=== PATIENT | female | born 1945 | race Caucasian/White ===

== ENCOUNTER 2017-06-11 07:24 | Day surgery (SDC) | payer BC ==
[~2017-06-11 07:24] MED LIST: Metoclopramide 10 MG/2 ML SDV IV PRN; Sodium Chloride 0.9% 1,000 ML IV SCH; Sodium Chloride 0.9% 10 ML Syringe FLUSH PRN
[2017-06-11] MEDS ORDERED: Atropine 0.4 MG/ML SDV ONE (09:15)
[2017-06-11] MEDS ORDERED: Propofol 200 MG/20 ML SDV ONE (09:15)
[2017-06-11 12:58] VITALS: BP 134/71
--- NOTE | 2017-06-11 15:16 | OR ---
DATE OF OPERATION: 06/11/2017 PREOPERATIVE DIAGNOSIS: Screening colonoscopy. POSTOPERATIVE DIAGNOSIS: Normal colonoscopy. OPERATION: Screening colonoscopy. COMPLICATIONS: None. DRAINS: None. SPECIMENS: None. ESTIMATED BLOOD LOSS: Zero. ANESTHESIA: General propofol anesthesia. INDICATION: Ms. Prather is a 72-year-old female, who is here for a screening colonoscopy. Her previous colonoscopy was approximately 6 to 7 years ago, and she has a known family history of colon cancer. The above-mentioned procedure was explained. The risks, benefits, and complications were explained. The patient understood and agreed and was brought to the operating room. DESCRIPTION OF PROCEDURE: The patient was brought to the operating room, placed in the left lateral decubitus position on the operating room table. Satisfactory general propofol anesthesia was administered. We began by performing a rectal examination which was within normal limits. I then placed the endoscope by finger introduction into the rectum and subsequently advanced to the level of the cecum. Cecum was identified by the appendiceal orifice, the ileocecal valve, and the cecal strap. The terminal ileum was then intubated and it was normal. The remainder of the colon was evaluated on withdrawal and there was no evidence of telangiectasias, polyps, neoplastic growths, or diverticula. We then performed a retroflexion maneuver in the rectum which revealed no significant findings. The colon was decompressed and the endoscope was withdrawn. The patient tolerated the procedure well. There were no complications. Instrument count was correct. The patient was awoken in the OR and taken to the PACU for recovery. KATERYNA /[id number]
== END 2017-06-11 11:30 | disposition home or self-care (01) ==
LOC: LB.SDS 07:24
PROVIDERS: ATTEND Surgery
DX: Z12.11 Encounter for screening for malignant neoplasm of colon (principal); Z80.0 Family history of malignant neoplasm of digestive organs; Z88.1 Allergy status to other antibiotic agents; Z91.09 Other allergy status, other than to drugs and biological substances; Z98.890 Other specified postprocedural states
CPT/HCPCS: 45378; J0461; J2704; J7040; J7050

== ENCOUNTER 2024-06-23 09:41 | Day surgery (SDC) | payer BC ==
[~2024-06-23 09:41] MED LIST changes: -Sodium Chloride 0.9% 1,000 ML IV SCH; -Sodium Chloride 0.9% 10 ML Syringe FLUSH PRN
[2024-06-23] MEDS: Sodium Chloride 0.9% 1,000 ML IV SCH (10:05)
[2024-06-23] MEDS ORDERED: Atropine 0.4 MG/ML SDV ONE (11:15)
[2024-06-23] MEDS ORDERED: Lidocaine 1% 30 ML SDV ONE (11:15)
[2024-06-23] MEDS ORDERED: Propofol 200 MG/20 ML SDV ONE (11:15)
[2024-06-23 11:30] VITALS: BP 101/44; PULSE 60
== END 2024-06-23 12:27 | disposition home or self-care (01) ==
LOC: LB.SDS 09:41
PROVIDERS: ATTEND Surgery
DX: Z12.11 Encounter for screening for malignant neoplasm of colon (principal); K57.30 Diverticulosis of large intestine without perforation or abscess without bleeding; Z86.010 Personal history of colon polyps; Z80.0 Family history of malignant neoplasm of digestive organs; I10 Essential (primary) hypertension; Z79.899 Other long term (current) drug therapy
CPT/HCPCS: J0461; J2704; J7030